=== PATIENT | female | born 1965 | race Hispanic/Latino ===

== ENCOUNTER 2017-02-15 15:51 | Outpatient (CLI) | payer OTHER ==
--- NOTE | 2017-02-16 14:09 | Mammography Report ---
BILATERAL DIGITAL SCREENING MAMMOGRAM with CAD : 02/15/17 15:51:00 CLINICAL: Routine screening. COMPARISON:02/16/16 FINDINGS: The breasts are heterogeneously dense, which may obscure small masses. No mass, architectural distortion or suspicious calcifications. IMPRESSION: No mammographic evidence of malignancy. BI-RADS CATEGORY: 2 -- Benign RECOMMENDATION: Routine mammographic screening in one year. COMMENT: Patient follow-up letters are generated by our [employer] application.
== END 2017-02-15 15:52 | disposition home or self-care (01) ==
LOC: SPVWC 15:51
PROVIDERS: ATTEND Obstetrics & Gynecology
DX: Z12.31 Encounter for screening mammogram for malignant neoplasm of breast (principal)
CPT/HCPCS: 77067; G0202

== ENCOUNTER 2018-03-13 08:50 | Outpatient (CLI) | payer OTHER ==
[2018-03-13 10:00] LABS: Blood Urea Nitrogen 15 mg/dL (7-17)
--- NOTE | 2018-03-13 13:11 | Cat Scan Report ---
CT abdomen and pelvis with contrast: Right pelvic/abdominal cyst. Following IV and oral contrast transverse images are obtained from lower chest to the ischium with coronal and sagittal 2-D reformatted images. The visualized lung bases are clear. The abdominal organs are unremarkable with the exception of a tiny left splenic cyst and single calcification. 1.6 cm single nodules are identified related to each adrenal gland. The retroperitoneal organs are not otherwise remarkable. There is no adenopathy noted. The abdominal aorta is normal in size and contour. An IVC filter is present. The partially opacified bowel and mesentery appear normal. Sections carried into the pelvis demonstrates a somewhat elongated defined low attenuation collection consistent with fluid that measures approximately 0.4 x 4 cm in size. The patient's uterus has been removed. The ovaries cannot be clearly defined. This mass has no apparent connection with the adjacent tissues. When compared to a prior abdominal CT in 2010 the adrenal nodules have not changed. The pelvis was not scanned at that time. Impressions: 1. Pelvic cyst of indeterminate origin. No apparent solid component. 2. Stable adrenal nodules consistent with adenoma.
== END 2018-03-13 08:51 | disposition home or self-care (01) ==
LOC: CT 08:50
PROVIDERS: ATTEND Internal Medicine
DX: K66.8 Other specified disorders of peritoneum (principal); J98.4 Other disorders of lung
CPT/HCPCS: 36415; 74177; 82565; 84520; Q9967

== ENCOUNTER 2018-05-01 08:06 | Outpatient (CLI) | payer OTHER ==
--- NOTE | 2018-05-01 15:35 | Mammography Report ---
BILATERAL DIGITAL SCREENING MAMMOGRAM with CAD: 05/01/18 08:06:00 CLINICAL: Routine screening. COMPARISON:02/15/17, 02/16/16 and 07/01/14 FINDINGS: The breasts are heterogeneously dense, which may obscure small masses. No mass, architectural distortion or suspicious calcifications. IMPRESSION: No mammographic evidence of malignancy. BI-RADS CATEGORY: 1 - - Negative RECOMMENDATION: Routine mammographic screening in one year. COMMENT: Patient follow-up letters are generated by our [employer] application.
== END 2018-05-01 08:07 | disposition home or self-care (01) ==
LOC: SPVWC 08:06
PROVIDERS: ATTEND Obstetrics & Gynecology
DX: Z12.31 Encounter for screening mammogram for malignant neoplasm of breast (principal)
CPT/HCPCS: 77067

== ENCOUNTER 2019-05-10 07:52 | Outpatient (CLI) | payer BC ==
--- NOTE | 2019-05-11 08:31 | Mammography Report ---
BILATERAL DIGITAL SCREENING MAMMOGRAM WITH CAD INDICATION: Routine screening mammography. TECHNIQUE: Digital bilateral 2D mammography was obtained in the craniocaudal and mediolateral obliq ue projections. This examination was interpreted with the benefit of Computer-Aided Detection analysi s. COMPARISON: 05/01/2018 FINDINGS: Breast Density: The breasts are heterogeneously dense, which may obscure small masses. No mass, architectural distortion or suspicious calcifications. IMPRESSION:No mammographic evidence of malignancy. BI-RADS Category 1: Negative. No mammographic evidence of malignancy. Recommend routine screening m ammography in one year. A "normal" or negative report should not discourage follow up or biopsy of a clinically significant f inding. A written summary of these findings will be mailed to the patient. The patient will be entered into a mammography reporting system which will generate a reminder letter for the patient's next appointmen t at the appropriate interval. The [employer] recommends yearly mammograms starting at age 40 and continuing as l rebecca as a woman is in good health. Breast MRI is recommended for women with an approximate 20-25% or greater lifetime risk of breast cancer, including women with a strong family history of breast or ova rocio cancer or who have been treated for Hodgkin's disease. Signer Name: Jese Mello MD Signed: 05/11/2019 8:27 AM Workstation Name: [id number]
== END 2019-05-10 07:53 | disposition home or self-care (01) ==
LOC: SPVWC 07:52
PROVIDERS: ATTEND Internal Medicine
DX: Z12.31 Encounter for screening mammogram for malignant neoplasm of breast (principal)
CPT/HCPCS: 77067

== ENCOUNTER 2021-08-27 09:06 | Outpatient (CLI) | payer BC ==
--- NOTE | 2021-08-27 15:03 | Mammography Report ---
DIGITAL SCREENING MAMMOGRAM WITH CAD, 08/27/2021 CLINICAL INFORMATION / INDICATION: Routine screening mammography. Z12.31 SCREENING TECHNIQUE: Digital bilateral 2D mammography was obtained in the craniocaudal and mediolateral obliqu e projections. This examination was interpreted with the benefit of Computer-Aided Detection analysis . COMPARISON: 12/14/2011 through 05/13/2020. FINDINGS: Breast Density: The breasts are heterogeneously dense, which may obscure small masses. No dominant mass, suspicious calcifications, or architectural distortion in either breast. IMPRESSION: No mammographic evidence of malignancy. Follow up recommendation: Routine yearly BI-RADS Category 1: NEGATIVE A "normal" or negative report should not discourage follow up or biopsy of a clinically significant f inding. A written summary of these findings will be mailed to the patient. The patient will be entered into a mammography reporting system which will generate a reminder letter for the patient's next appointmen t at the appropriate interval. The [employer] recommends yearly mammograms starting at age 40 and continuing as l rebecca as a woman is in good health. Breast MRI is recommended for women with an approximate 20-25% or greater lifetime risk of breast cancer, including women with a strong family history of breast or ova rocio cancer or who have been treated for Hodgkin's disease. Signer Name: Tom Green MD Signed: 08/27/2021 2:59 PM Workstation Name: [id number]
== END 2021-08-27 09:07 | disposition home or self-care (01) ==
LOC: MAMMO 09:06
PROVIDERS: ATTEND Internal Medicine
DX: Z12.31 Encounter for screening mammogram for malignant neoplasm of breast (principal)
CPT/HCPCS: 77067